=== PATIENT | female | born 1995 ===

== ENCOUNTER 2021-06-28 16:25 | Emergency (ER) | payer BC ==
[~2021-06-28] VITALS: Ht 162.6 cm; Wt 90.7 kg
[2021-06-28] MEDS ORDERED: MAG HYDROX/AL HYDROX/SIMETH 30 ML LIQUID UDC PO ONE (17:00)
[2021-06-28] MEDS ORDERED: FAMOTIDINE 20 MG TABLET PO ONE (17:00)
[2021-06-28] MEDS ORDERED: FAMOTIDINE 20 MG TABLET ONE (17:02)
[2021-06-28] MEDS ORDERED: MAG HYDROX/AL HYDROX/SIMETH 30 ML LIQUID UDC ONE (17:02)
[2021-06-28 17:27] LABS: *BILIRUBIN,URIN NEGATIVE (NEGATIVE); *BLOOD, URINE NEGATIVE (NEGATIVE); *CLARITY,URINE CLEAR (CLEAR); *COLOR,URINE YELLOW (YELLOW); *KETONES,URINE 1+ (NEGATIVE); *UROBILINOGEN,URINE 0.2 E.U./dl (NORMAL); LEUKOCYTE ESTERASE ,URINE NEGATIVE (NEGATIVE); NITRITE, URINE NEGATIVE (NEGATIVE); UGLUCOSE NEGATIVE (NEGATIVE)
[2021-06-28] MEDS ORDERED: ONDANSETRON ODT 4 MG TAB.RAPDIS SL ONE (17:30)
[2021-06-28 17:34] LABS: *URINE HCG, QUAL NEGATIVE (NEGATIVE)
[2021-06-28] MEDS ORDERED: ONDANSETRON ODT 4 MG TAB.RAPDIS ONE (17:39)
--- NOTE | 2021-06-28 18:24 | NUR ---
Pt tolerated po challenge well with no N/V noted, notified.
[2021-06-28] MEDS ORDERED: ONDA4TAB5 PO (18:48)
--- NOTE | 2021-06-28 18:56 | NUR ---
Patient discharged to home in stable condition. Written and verbal after care instructions given. Patient verbalizes understanding of instructions. Stressed follow up or return to ER for worsening s/s.
== END 2021-06-28 18:57 | disposition home or self-care (01) ==
LOC: ER 16:35
DX: K21.9 Gastro-esophageal reflux disease without esophagitis (principal); K50.90 Crohn's disease, unspecified, without complications; Z88.1 Allergy status to other antibiotic agents
CPT/HCPCS: 84703; A4663; Q0162